=== PATIENT | female | born 1990 | race Caucasian/White ===

== ENCOUNTER → 2024-02-20 07:21 | Outpatient (CLI) | payer OTHER, SELFPAY ==
--- NOTE | 2024-02-20 07:22 | DI.US.S_ITS ---
PROCEDURE: US OB >= 14 WEEKS FETUS INDICATIONS: anatomy, earlier concern for non-fusion of membranes OUTSIDE/PRIOR DATING DATA: Last menstrual period (LMP): 09/28/2023. LMP-based estimated date of delivery (EL): 07/04/2024. First dating scan (date and location): 02/20/2024. Estimated date of delivery (EL) from first dating scan: 07/01/2024. The calculations are made using the clinical EL of 07/04/2024. TECHNIQUE: Real-time scanning was performed of the fetus, with image documentation and biometric measurements. Endovaginal scanning: Not performed. COMPARISON: None. FINDINGS: General: A single living intrauterine gestation is present. Presentation: Vertex. Placenta: Placental position is posterior, without previa. Amniotic fluid index: 15.8 cm, normal range is 5-24 cm. Single deepest vertical pocket is 4.3 cm. heart rate: 149 beats per minute. Maternal cervical canal: 4.6 cm long. Normal lower limit is 2.5 cm. biometrics: Biparietal diameter: 5.1 cm, 21 weeks 4 days Head circumference: 19.1 cm, 21 weeks 2 days Abdominal circumference: 16.7 cm, 21 weeks 5 days Femur length: 3.3 cm, 20 weeks 1 day Clinically estimated gestational age: 20 weeks 5 days Composite gestational age from present scan: 21 weeks 1 day Estimated weight and percentile: 397 g, 65th percentile. Anatomic survey: Neuro: Ventricles are non-dilated at less than 10 mm. Cisterna magna is normal at 3-11 mm. Cerebellum is normal in size and morphology. Nuchal skin fold: Normal at less than 6 mm between 14-21 weeks gestational age. Face: Nose and lips, facial profile are normal. Spine: No evidence for spina bifida. Heart: 4-chambered heart is present, with normal ventricular outflow tracts. Diaphragm: Diaphragm is intact. Stomach: Left-sided stomach is present. Kidneys: No hydronephrosis. Normal is less than 5 mm in 2nd trimester, less than 7 mm in 3rd trimester. Cord: 3-vessel cord has orthotopic insertion. Bladder: Normal in size. Extremities: All 4 extremities identified. IMPRESSION: 1. Merchant living intrauterine at 21 weeks 1 day based on today's ultrasound. Fetus is in the 65th percentile for weight. 2. Normal placenta and amniotic fluid. 3. Normal and complete anatomic survey. We strive to produce accurate, complete, and clear reports of imaging services. To assist us in improving patient care, this report was composed using standard report templates and voice recognition software. Therefore, it may contain abnormal punctuation, insertions and/or omissions. Occasional wrong-word or sound-alike substitutions may occur. Though we review the report and make efforts to correct it, we do recommend that the report be read carefully in proper context to recognize any text inaccuracies. Dictated by: Wesley Meeks M.D. on 02/20/2024 at 10:46 Approved by: Wesley Meeks M.D. on 02/20/2024 at 10:51
== END ==
PROVIDERS: Referring Provider Student in an Organized Health Care Education/Training Program; Visit Provider Student in an Organized Health Care Education/Training Program
DX: Z34.80 Encounter for supervision of other normal pregnancy, unspecified trimester (principal); Z3A.21 21 weeks gestation of pregnancy
CPT/HCPCS: 76811

== ENCOUNTER → 2024-03-14 12:12 | Outpatient (CLI) | payer OTHER, SELFPAY ==
[2024-03-14 12:46] LABS: Appearance Urine UA CLEAR; Bilirubin Urine UA NEGATIVE (NEGATIVE); Color Urine UA YELLOW; Glucose Urine UA NEGATIVE (Negative); Ketones Urine UA NEGATIVE (NEGATIVE); Leukocyte Esterase Urine UA TRACE (NEGATIVE); Nitrite Urine UA NEGATIVE (Negative); Occult Blood Urine UA NEGATIVE (Negative); Protein Urine UA NEGATIVE (Negative); Specific Gravity Urine UA <=1.005 (1.000-1.035); Urobilinogen Urine UA 0.2 E.U./dL (0.2)
[2024-03-14 12:48] LABS: pH Urine UA 6.5 (4.5-8.0)
[2024-03-14 12:54] LABS: Bacteria Urine Moderate (10-30); Culture Indicated Urine Cult Not Indicated; RBC Urine None Seen (0-5/HPF); Squamous Epithelial Cell Urine 5-10 /HPF (0-5/HPF); Urine Volume 10mL (spun); WBC Urine 1-5/HPF (0-5/HPF)
== END ==
LOC: LAB 12:13
PROVIDERS: Referring Provider Student in an Organized Health Care Education/Training Program; Visit Provider Student in an Organized Health Care Education/Training Program
DX: R30.0 Dysuria (principal)
CPT/HCPCS: 81001

== ENCOUNTER 2024-03-14 16:04 | Inpatient (IN) | payer OTHER, SELFPAY ==
--- NOTE | 2024-03-14 16:56 | DI.US.S_ITS ---
PROCEDURE: US OB LIMITED INDICATIONS: cervical length, bloody discharge OUTSIDE/PRIOR DATING DATA: Last menstrual period (LMP): 09/28/2023 LMP-based estimated date of delivery (EL): 07/04/2024 The calculations are made using the working EL of 07/04/2024. TECHNIQUE: Real-time scanning was performed of the fetus, with image documentation and biometric measurements. . Endovaginal scanning: Not performed COMPARISON: [facility], , OB >= 14 WEEKS FETUS, 02/20/2024, 7:45. FINDINGS: General: A single living intrauterine gestation is present. Presentation: Breech Placenta: Placental position is left fundal, without previa. Amniotic fluid index: 9.5 cm, normal range is 5-24 cm. Single deepest vertical pocket is 3.6 cm. heart rate: 157 beats per minute. Maternal cervical canal: Cervix is completely dilated measures up to 10.1 cm in diameter. foot appears extending into cervical canal. biometrics: Biparietal diameter: 6.5 cm, 26 weeks, 2 days. Head circumference: 23.2 cm, 25 weeks, 2 days. Abdominal circumference: 20.0 cm, 24 weeks, 4 days. Femur length: 4.2 C he 3 weeks, 4 days. Clinically estimated gestational age: 24 weeks, 0 day Composite gestational age from present scan: 25 weeks, 0 day Estimated weight and percentile: 693 grams, 61 percent IMPRESSION: 1. Single live intrauterine gestation with fetus in breech presentation. heart rate is 157 beats per minute. Estimated weight is at 61 percent and is consistent with normal growth. 2. Normal JENN at 9.5 cm. 3. Completely dilated cervix measures up to 10.1 cm in diameter. foot appears extending into cervical canal. We strive to produce accurate, complete, and clear reports of imaging services. To assist us in improving patient care, this report was composed using standard report templates and voice recognition software. Therefore, it may contain abnormal punctuation, insertions and/or omissions. Occasional wrong-word or sound-alike substitutions may occur. Though we review the report and make efforts to correct it, we do recommend that the report be read carefully in proper context to recognize any text inaccuracies. Dictated by: Yash Glass M.D. on 03/14/2024 at 17:54 Approved by: Yash Glass M.D. on 03/14/2024 at 18:01
[2024-03-14] MEDS: BETAMETHASONE 30 MG/5 ML MDV 12 MG IM (17:35)
[2024-03-14 17:50] LABS: Fetal Fibronectin Positive
[2024-03-14 17:57] LABS: Add Manual Diff / Slide Review NO; Basophils Absolute Auto 100 /uL (0-100); Basophils Percent Auto 0.9 % (0-2); Eosinophils Absolute Auto 0 /uL (0-450); Eosinophils Percent Auto 0.4 % (2-4); Hematocrit 38.8 % (36-46); Hemoglobin 13.3 g/dL (12.0-16.0); Lymphocytes Absolute Auto 2000 /uL (1100-4500); Lymphocytes Percent Auto 22.5 % (25-40); Mean Corpuscular HGB Conc 34.2 % (30-36); Mean Corpuscular Hemoglobin 33.5 PG (26-34); Mean Corpuscular Volume 98.2 fL (80-100); Monocytes Absolute Auto 700 /uL (0-900); Monocytes Percent Auto 7.7 % (3-14); Neutrophils Absolute Auto 6200 /uL (1500-7000); Neutrophils Percent Auto 68.5 % (50-75); Platelet Count 225 X10^3/uL (150-400); Red Blood Cell Count 3.95 X10^6/uL (4.0-5.2); Red Cell Distribution Width 13.4 % (11.6-14.8)
[2024-03-14] MEDS: CEFAZOLIN 2 GM/100 ML PREMIX 100 ML IV (18:05)
--- NOTE | 2024-03-14 18:13 | PM.OBHP.IH.1 ---
OB HPI Date/Time Date of admission: 03/14/24 Date Patient Seen: 03/14/24 Time Patient Seen: 18:13 History of Present Condition Chief complaint: OBSERVATION EL Calculator Estimated Delivery Date Method Current WG Current Estimate 07/04/24 Manual 24w 0d Other Estimates 07/09/24 LMP (Certain) 23w 2d Estimated Gestational Age (weeks): 24 : 2 Para: 1 care: good care, initiated at week # (8), number of visits (4) and pounds weight gain (13) Dating criteria OB: LMP confirmed by 1st trimester US Ultrasounds: normal 1st trimester US and normal mid trimester US Obstetrical complications: none Medical complications OB: none Indications Operative indications ( section): breech presentation (double footling) Preadmission Labs Last OB Lab Results: Blood Type Pending 03/14/24 17:43 Antibody Screen Pending 03/14/24 17:43 Hct 38.8 % (36-46) 03/14/24 17:43 Hgb 13.3 g/dL (12.0-16.0) 03/14/24 17:43 -: Chlamydia screen: negative and Gonorrhea screen: negative Genetic Screens: Cell-free DNA: Normal (low risk male) Prior (ies) Past Pregnancies Del. Date GA/Weeks Labor Lgth Wt Sex Route Outcome Anesthesia Place Delv Breastfeed Preg Comp Name 01/22/15 40 12 8 lb 11 oz Male vaginal live - full term epidural [facility] Attempted other Lv Delivery Date: 01/22/15 Last Updated by: Magalie Castrejon RN shortened cervix (incidental finding) Hx # Term Pregnancies: 1 Hx # Pregnancies: 0 Number of Living Children: 1 Multiple births: 0 Spontaneous abortions: 0 Ectopic pregnancies: 0 Elective abortions: 0 Evaluation Evaluation Baseline heart rate: 148 Variability: Moderate (11-25) monitor accelerations: Present Monitor Decelerations: Absent Contraction Frequency (minutes): 3 Uterine Contraction Intensity: Moderate Status: Category l Dilation (cm): 5 Effacement (%): 80 station: +1 (bulging bag of membranes with both feet inside) Position of cervix: anterior Consistency: soft PFSH Medical History (Updated 01/31/24 @ 16:38 by Magalie Castrejon RN) Short cervical length during Abnormal Pap smear of cervix Surgical History (Updated 01/31/24 @ 11:47 by Magalie Castrejon RN) [place] teeth removed (02/06/12) Family History (Updated 02/08/24 @ 11:11 by Magalie Castrejon RN) Mother Heart disease Hyperlipidemia Hypertension Factor V Leiden Grandmother Heart disease Hypertension Sister Hyperlipidemia Hypertension Father Family estrangement Social History marital status: number of children: 1 household members: spouse and children lives independently: Yes caregiver/support person: Yes housing: house pets and animals: Yes (dog) education level: college (bachelor's degree) occupational status: unemployed current occupational exposures/hazards: No special kwabena needs: No travel history: recent (domestic only) seatbelt use: always water heater temp set < 120 deg: Yes working smoke detector in home: Yes fire extinguisher in home: Yes carbon monox detector in home: Yes firearms in home: No do you feel safe at home: Yes Smoking Status: Never smoker second hand exposure: No (~1-2 glasses wine/week when not ) substance use type: does not use well-balanced diet: rarely or never daily servings fruits/ve-1 caffeine: Yes Type(s) of exercise: walking and bicycling (stationary bike) Meds Home Medications and Allergies Home Medications Medication Instructions Recorded Confirmed Type No Known Home Medications 02/19/24 02/19/24 History Allergies Allergy/AdvReac Type Severity Reaction Status Date / Time No Known Drug Allergies Allergy Unverified 02/19/24 14:58 OB Exam Narrative Exam Narrative: Generally: Moderate distress secondary to contraction Fundal height: 25 cm Ultrasound: Estimated weight 693 g. Double footling breech Objective Labs 03/14/24 17:43 Labs: Laboratory Results - last 24 hr 03/14/24 03/14/24 17:15 17:43 WBC 9.0 RBC 3.95 L Hgb 13.3 Hct 38.8 MCV 98.2 MCH 33.5 MCHC 34.2 RDW 13.4 Plt Count 225 Neut % (Auto) 68.5 Lymph % (Auto) 22.5 L Fannin % (Auto) 7.7 Eos % (Auto) 0.4 L Baso % (Auto) 0.9 Neut # (Auto) 6200 Lymph # (Auto) 2000 Fannin # (Auto) 700 Eos # (Auto) 0 Baso # (Auto) 100 Fibronectin Positive H Assessment and Plan Assessment and Plan Assessment and Plan narrative: Assessment: 33-year-old 2 para 1 at 24 weeks gestation by last menstrual period confirmed by first-trimester ultrasound labor with advanced cervical dilation Double footling breech Plan: under regional anesthesia if possible Betamethasone 12.5 mg subQ x1 Peds notified Transport team called The risks, benefits, explained to the patient verbally. Due to emergency situation she was not able to sign consent form but verbally agreed to the . Time-Based Coding :: [TOTAL MINUTES] spent with patient and on the chart (including review of chart, obtaining history, exam, reviewing outside data, placing orders, documenting exam and treatment plan, and counseling patient) on [DATE].
--- NOTE | 2024-03-14 18:25 | PM.PREOP ---
Pre-operative Note Interval Note History & Physical reviewed/Exam performed by Physician: Yes Changes to H&P: No H&P completed within 30 days and has changed as indicated here:: 03/14/24
[2024-03-14] MEDS: ACETAMINOPHEN IV 1,000 MG/100 ML VIAL 400 MG IV (19:08)
--- NOTE | 2024-03-14 19:37 | SUR.OPER ---
Supine on padded OR bed, head on pillow, arms secured on padded arm boards at <90 degrees abduction, legs uncrossed, safety belt at thigh, tape over blanket over lower legs.
--- NOTE | 2024-03-14 20:03 | P.OP_ITS ---
Operative Date/Time/Diagnoses Date of procedure: 03/14/24 Time of procedure: 20:03 Pre-op diagnosis: Twenty-four weeks' gestation Incompetent cervix Double footling breech presentation Post-op diagnosis: same Procedure & Clinicians Procedure: Emergent primary low transverse section Same procedure as scheduled: Yes Indications: 24 weeks' gestation labor Double footling breech presentation Surgeon: Georgina Urbano Yes if Unassisted: No Underwater Hunter: Sunny Ding Reason for Underwater Hunter: The certified physical therapist assistant was necessary to retract upon entry into the abdomen and uterus. He assisted with closure with retraction, clipping of suture, and closure of the contralateral fascia. Anesthesia Type: Spinal and Epidural Operative Notes Findings: Live male infant in the double footling breech presentation Normal uterus, tubes, and ovaries Closure Type: primary Specimen(s): cord pH Intraoperative meds administered: Acetaminophen, Duramorph, Ketorolac and Pitocin Applied: Catheter (To continuous drainage) Estimated Blood Loss (mL): 350 Blood products transfused: none Procedure in detail: The patient was taken to the operating room and placed initially in Trendelenburg. While we waited for the pediatric transport team, a spinal/epidural was placed with the patient lying on her side. Initially the plan was to wait until the pediatric team was on the ground, but the baby began having variable decelerations down to the 90s. A decision was made to proceed. A time-out was performed. The Pearce catheter had already been placed. The patient was prepped and draped in the usual sterile fashion. A Pfannenstiel skin incision was made 2 fingerbreadths above the pubic symphysis and carried through to the underlying layer of fascia. The fascia was nicked in the midline and the incision extended bilaterally with the Gray scissors. The superior aspect of the fascial incision was grasped with the Adelaide clamps, elevated, and the underlying rectus muscles dissected off sharply and bluntly. Attention was then turned to the inferior aspect of this incision which in a similar fashion was grasped with a Adelaide, elevated, and the underlying rectus muscles dissected off sharply and bluntly. The rectus muscles were in the midline. The peritoneum was identified, grasped between 2 hemostats, and entered sharply with the Metzenbaum scissors. A bladder blade was placed. The vesicouterine peritoneum was grasped with a pickup, and entered sharply with the Metzenbaum scissors. This incision was extended bilaterally and the bladder flap created digitally. The bladder blade was reinserted. The lower uterine segment was well-developed. A transverse incision was made and carried through to the am niotic sac. There was clear amniotic fluid. This incision had to be extended vertically to the fundus of the uterus due to head entrapment. The body up to the nipple line was down in the vagina. The was delivered. Milking of the cord was performed. The cord was double clamped and cut. The infant was handed off to waiting resuscitation team. The piece of cord for cord pH was obtained. An attempt to obtain cord bloods was unsuccessful due to the length of the cord at that time. The placenta was delivered by expression. The uterus was cleared of all clots and debris. The vertical incision was closed with 1. Chromic in a running interlocking fashion in 2 layers. The transverse layer was closed with 1. Chromic in a running interlocking fashion and then a second layer of imbricating for hemostasis. A baseball stitch was done with 2-0 Vicryl on the serosa. The bladder flap was reapproximated using 2-0 Vicryl. The gutters were cleared of all clots and debris after the tubes and ovaries were examined. The peritoneum was closed using 2-0 Vicryl in a running fashion. The fascia was reapproximated using 0 Vicryl in a running fashion. The subcutaneous layer was copiously irrigated with warm normal saline. Five simple interrupted sutures of 3-0 Vicryl were placed to reapproximate. The skin was closed with 4-0 Monocryl in a subcuticular fashion. Steri-Strips, ABD, and Medipore tape were placed. The uterus was expressed of a small amount of old blood. Sponge, lap, and instrument counts were correct x2. The patient tolerated the procedure well, and was taken to PACU in stable condition. Complications: none Baby 1: Delivery Date: 03/14/24 Delivery Time: 19:03 Infant Gender: Male Presentation: breech Details: footling (double) Placental Delivery Description: Expressed Cord Vessel Description: 3 Vessels score (1 min): 1 score (5 min): 2 score (10 min): 4 weight: 1 lb 7 oz Post-operative Condition: stable Disposition: PACU Aftercare: routine postop
[2024-03-14 20:19] VITALS: BP 95/61; PULSE 82; RESP 21; TEMP 36.7; O2SAT 100
[2024-03-14 20:22] VITALS: BP 101/57; PULSE 93; RESP 16; O2SAT 100
[2024-03-14 20:30] VITALS: BP 94/55; PULSE 72; RESP 22; O2SAT 100
[2024-03-14 20:36] VITALS: BP 102/61; PULSE 70; RESP 16; O2SAT 100
[2024-03-14] MEDS: LACTATED RINGERS 1,000 ML 999 ML IV (20:40)
[2024-03-14 20:45] VITALS: BP 98/58; PULSE 79; RESP 16; O2SAT 100
[2024-03-14 20:55] VITALS: BP 98/53; PULSE 73; RESP 16; O2SAT 100
--- NOTE | 2024-03-14 21:03 | SUR.PHASEI ---
2015: late entry:Patient directly to center s/p in stable condition; awake and alert; vss; recovered patient in birthing center due to baby being flown out to a higher level of care.
[2024-03-15] MEDS: KETOROLAC 30 MG/ML VIAL IV ×3 (02:32→15:26)
[2024-03-15 05:44] LABS: Add Manual Diff / Slide Review NO; Basophils Absolute Auto 100 /uL (0-100); Basophils Percent Auto 0.5 % (0-2); Eosinophils Absolute Auto 0 /uL (0-450); Hematocrit 34.3 % (36-46); Hemoglobin 11.9 g/dL (12.0-16.0); Lymphocytes Absolute Auto 600 /uL (1100-4500); Mean Corpuscular HGB Conc 34.7 % (30-36); Mean Corpuscular Hemoglobin 33.8 PG (26-34); Mean Corpuscular Volume 97.4 fL (80-100); Monocytes Absolute Auto 500 /uL (0-900); Monocytes Percent Auto 3.7 % (3-14); Neutrophils Absolute Auto 11100 /uL (1500-7000); Neutrophils Percent Auto 90.8 % (50-75); Platelet Count 214 X10^3/uL (150-400); Red Blood Cell Count 3.52 X10^6/uL (4.0-5.2); Red Cell Distribution Width 13.5 % (11.6-14.8); White Blood Cell Count 12.2 X10^3/uL (4.5-11.0)
[2024-03-15] MEDS: ACETAMINOPHEN 325 MG TABLET 650 MG PO ×3 (06:05→16:38)
[2024-03-15] MEDS: DOCUSATE 100 MG CAPSULE PO (09:16)
[2024-03-15] MEDS: PRENATAL VIT,CALC/IRON/FOLIC 1 TABLET 1 TAB PO (09:16)
== END 2024-03-15 16:45 | disposition home or self-care (01) | DRG 788 ==
PROVIDERS: Obstetrics & Gynecology; Admitting Provider Student in an Organized Health Care Education/Training Program; Referring Provider Student in an Organized Health Care Education/Training Program; Visit Provider Student in an Organized Health Care Education/Training Program
PROC: 10D00Z1 Extraction of Products of Conception, Low, Open Approach (ICD-10-PCS; CPT 59514; principal; 2024-03-14 19:00)
DX: O60.12X0 Preterm labor second trimester with preterm delivery second trimester, not applicable or unspecified (principal); O32.8XX0 Maternal care for other malpresentation of fetus, not applicable or unspecified; Z37.0 Single live birth; Z67.40 Type O blood, Rh positive; Z3A.24 24 weeks gestation of pregnancy
CPT/HCPCS: 36415; 59050; 59514; 76815; 81001; 82731; 85025; 86850; 86900; 86901; 87070; 87075; 87205; G0379; J0134; J0330; J0690; J0702; J1100; J1885; J2274; J2405; J2704

== ENCOUNTER 2024-05-13 16:36 | Emergency (ER) | payer OTHER, SELFPAY ==
[2024-05-13] VITALS (9 sets, daily range): BP systolic 112–128; BP diastolic 58–75; PULSE 57–73; RESP 16–18; TEMP 36.3; O2SAT 98–100; BMI 25.1
--- NOTE | 2024-05-13 16:52 | DI.US.S_ITS ---
PROCEDURE: US PELVIC COMPLETE INDICATIONS: 8 weeks post , passing large clots/cramping TECHNIQUE: Real-time scanning was performed of the pelvic organs, with image documentation. Additional endovaginal scanning was necessary due to incomplete visualization of the adnexal and endometrial structures by transabdominal scanning. COMPARISON: None. FINDINGS: Uterus: Uterus is anteverted and normal in size at 9.1 x 5.8 x 5.4 cm. The myometrium is heterogeneous and show increased vascularity within the myometrium. The endometrium measures 10.9 mm combined thickness. Heterogeneous echotexture throughout endometrium with [id number] increased vascularity and microcystic changes. No definite solid appearing endometrial mass or significant fluid. Thickened cervical canal with hyperechoic echotexture. Complex fluid is noted adjacent to left side of vaginal cuff region with internal calcifications and measures up to 5 x 4.4 x 2.9 cm in size with mildly increased peripheral vascularity. Ovaries: The right ovary measures 2.9 x 2.2 x 1.5 cm, with a calculated ovarian volume of 5.1 cc. The left ovary measures 2.8 x 1.7 x 1.8 cm, with a calculated ovarian volume of 4.4 cc. The ovaries have a normal sonographic appearance. Less than 12 follicles can be seen in each ovary. No adnexal masses are seen. Other: No pathologic free abdominal or pelvic fluid. IMPRESSION: 1. Enlarged uterus with heterogeneous myometrial echotexture and mild hyperemia. Thickened endometrium with heterogeneous echotexture and [id number] hyperemia and microcystic changes . No definite endometrial mass or fluid is seen. 2. Mildly thickened endocervical canal with increased echotexture. Complex fluid is seen adjacent to left side of vaginal region as described above which may represent hematoma or seroma related to recent childbirth versus early abscess collection. Clinical correlation is recommended. CT of pelvis with contrast can also be done for further evaluation if indicated. 3. Normal appearing bilateral ovaries. We strive to produce accurate, complete, and clear reports of imaging services. To assist us in improving patient care, this report was composed using standard report templates and voice recognition software. Therefore, it may contain abnormal punctuation, insertions and/or omissions. Occasional wrong-word or sound-alike substitutions may occur. Though we review the report and make efforts to correct it, we do recommend that the report be read carefully in proper context to recognize any text inaccuracies. Dictated by: Yash Glass M.D. on 05/13/2024 at 18:06 Approved by: Yash Glass M.D. on 05/13/2024 at 18:11
[2024-05-13 17:16] LABS: Add Manual Diff / Slide Review NO; Basophils Absolute Auto 100 /uL (0-100); Basophils Percent Auto 1.1 % (0-2); Eosinophils Absolute Auto 100 /uL (0-450); Eosinophils Percent Auto 1.2 % (2-4); Hematocrit 42.3 % (36-46); Hemoglobin 14.5 g/dL (12.0-16.0); Lymphocytes Absolute Auto 1900 /uL (1100-4500); Lymphocytes Percent Auto 31.9 % (25-40); Mean Corpuscular HGB Conc 34.3 % (30-36); Mean Corpuscular Volume 96.2 fL (80-100); Monocytes Absolute Auto 300 /uL (0-900); Monocytes Percent Auto 5.3 % (3-14); Neutrophils Absolute Auto 3600 /uL (1500-7000); Neutrophils Percent Auto 60.5 % (50-75); Platelet Count 250 X10^3/uL (150-400); Red Blood Cell Count 4.39 X10^6/uL (4.0-5.2); Red Cell Distribution Width 12.1 % (11.6-14.8)
[2024-05-13 17:25] LABS: Blood Urea Nitrogen 15 mg/dL (7-17); Calcium 9.4 mg/dL (8.4-10.2); Carbon Dioxide 24 mmol/L (22-32); Chloride 104 mmol/L (98-107); Estimated Glomerular Filt Rate > 60 mL/min (>60); Glucose 111 mg/dL (70-100); HEMOLYSIS < 15 (0-50); Potassium 3.7 mmol/L (3.4-5.1); Sodium 140 mmol/L (137-145)
--- NOTE | 2024-05-13 19:19 | PC.NURSE ---
patient changed diaper depend and reports that it was soiled with blood in toilet and with a huge clot. provider aware.
--- NOTE | 2024-05-13 20:22 | ED_ITS ---
HPI - Female Genitourinary General Chief complaint: Vaginal Bleeding Stated complaint: bleeding since emergency c section 8 weeks ago Time Seen by Provider: 05/13/24 20:22 History of Present Illness HPI Narrative: 33-year-old female without any significant past medical history comes into the ED from home for evaluation of vaginal bleeding. She states that she had a emergency approximately [address] Batista here at [facility]. States that since then she has had some minor bleeding. She states that she was 24 weeks at that time. She states unfortunately the was lost. She states that she has been having cramping and had a larger clot earlier today at 3:30 p.m. which is what brought her into the ED for further evaluation treatment. At time of evaluation patient no longer having any cramping or any other symptoms at this time. Not on any blood thinners, she denies any other symptoms at this time. Related Data Home Medications Medication Instructions Recorded Confirmed No Known Home Medications 02/19/24 04/25/24 Allergies Allergy/AdvReac Type Severity Reaction Status Date / Time No Known Drug Allergies Allergy Unverified 04/25/24 10:00 Review of Systems Review of Systems Narrative: General: Denies fever, chills, weight loss HEENT: Denies headache, eye drainage, eye irritation, head trauma, sore throat, voice change Cardiovascular: Denies any chest pain, palpitations, tachycardia Respiratory: Denies any shortness of breath, cough, wheeze, stridor GI/: Positive vaginal bleeding, Denies any abdominal pain, nausea, vomiting, diarrhea, bright red blood per rectum, melanotic stools, urinary frequency, urinary retention, dysuria, hematuria MSK: Denies any joint pain, muscle pains, swelling Skin: Denies any rashes, lesions, discoloration Neuro: Denies any headache, lightheadedness, dizziness, fainting, weakness Psych: Denies SI/HI Patient History Medical History (Updated 05/13/24 @ 21:23 by Dillon Lira DO) Short cervical length during Abnormal Pap smear of cervix Surgical History (Updated 01/31/24 @ 11:47 by Magalie Castrejon RN) [place] teeth removed (02/06/12) Family History (Updated 02/08/24 @ 11:11 by Magalie Castrejon RN) Mother Heart disease Hyperlipidemia Hypertension Factor V Leiden Grandmother Heart disease Hypertension Sister Hyperlipidemia Hypertension Father Family estrangement Exam Initial Vital Signs Initial Vital Signs: Vital Signs Temperature 97.3 F L 05/13/24 16:41 Pulse Rate 63 05/13/24 16:41 Respiratory Rate 18 05/13/24 16:41 Blood Pressure 125/58 L 05/13/24 16:41 Pulse Oximetry 100 05/13/24 16:41 Oxygen Delivery Method Room Air 05/13/24 16:41 Course Orders Ordered: ED Orders 05/13/24 16:52 US pelvic complete Stat 05/13/24 17:03 Basic Metabolic Panel Stat Complete Blood Count AUTO DIFF Stat Type and Screen Stat Vital Signs Vital signs: Vital Signs - 8 hr 05/13/24 16:41 05/13/24 17:07 05/13/24 17:08 Temperature 97.3 F L Pulse Rate 63 65 Respiratory Rate 18 Blood Pressure 125/58 L 121/71 Pulse Oximetry 100 98 Oxygen Delivery Method Room Air 05/13/24 17:08 05/13/24 19:17 05/13/24 19:17 Temperature Pulse Rate 64 73 Respiratory Rate Blood Pressure 128/65 Pulse Oximetry 100 98 Oxygen Delivery Method Room Air 05/13/24 19:29 05/13/24 19:30 05/13/24 19:30 Temperature Pulse Rate 67 65 Respiratory Rate 17 Blood Pressure 112/58 L Pulse Oximetry 98 98 Oxygen Delivery Method Room Air 05/13/24 20:00 05/13/24 20:00 Temperature Pulse Rate 57 L Respiratory Rate 16 Blood Pressure 112/74 Pulse Oximetry 99 Oxygen Delivery Method Room Air MDM - Female Genitourinary Lab Data 05/13/24 17:03 05/13/24 17:03 Labs: Lab Results 05/13/24 Range/Units 17:03 WBC 6.0 (4.5-11.0) X10^3/uL RBC 4.39 (4.0-5.2) X10^6/uL Hgb 14.5 (12.0-16.0) g/dL Hct 42.3 (36-46) % MCV 96.2 (80-100) fL MCH 33.0 (26-34) PG MCHC 34.3 (30-36) % RDW 12.1 (11.6-14.8) % Plt Count 250 (150-400) X10^3/uL Neut % (Auto) 60.5 (50-75) % Lymph % (Auto) 31.9 (25-40) % [place]field % (Auto) 5.3 (3-14) % Eos % (Auto) 1.2 L (2-4) % Baso % (Auto) 1.1 (0-2) % Neut # (Auto) 3600 (3627-4515) /uL Lymph # (Auto) 1900 (8891-4351) /uL Whitfield # (Auto) 300 (0-900) /uL Eos # (Auto) 100 (0-450) /uL Baso # (Auto) 100 (0-100) /uL Sodium 140 (137-145) mmol/L Potassium 3.7 (3.4-5.1) mmol/L Chloride 104 (98-107) mmol/L Carbon Dioxide 24 (22-32) mmol/L BUN 15 (7-17) mg/dL Creatinine 0.60 (0.52-1.04) mg/dL Estimated GFR > 60 (>60) mL/min BUN/Creatinine Ratio 25.0 H (6-22) Glucose 111 H (70-100) mg/dL Calcium 9.4 (8.4-10.2) mg/dL Blood Type O Positive Antibody Screen Negative Imaging Data US - LEGAL CASHIER: Radiologist's Impression: [place] [address] Ultrasound Report Signed Patient: Delmy Nathan MR#: [id number] : 1990 Acct:[id number] Age/Sex: 33 / F Date of Service: 05/13/24 Loc: ED Accession Number: [id number] Procedure: US pelvic complete Ordering Provider: Zion Caballero MD PROCEDURE: US PELVIC COMPLETE INDICATIONS: 8 weeks post , passing large clots/cramping TECHNIQUE: Real-time scanning was performed of the pelvic organs, with image documentation. Additional endovaginal scanning was necessary due to incomplete visualization of the adnexal and endometrial structures by transabdominal scanning. COMPARISON: None. FINDINGS: Uterus: Uterus is anteverted and normal in size at 9.1 x 5.8 x 5.4 cm. The myometrium is heterogeneous and show increased vascularity within the myometrium. The endometrium measures 10.9 mm combined thickness. Heterogeneous echotexture throughout endometrium with jjyk-[id number] increased vascularity and microcystic changes. No definite solid appearing endometrial mass or significant fluid. Thickened cervical canal with hyperechoic echotexture. Complex fluid is noted adjacent to left side of vaginal cuff region with internal calcifications and measures up to 5 x 4.4 x 2.9 cm in size with mildly increased peripheral vascularity. Ovaries: The right ovary measures 2.9 x 2.2 x 1.5 cm, with a calculated ovarian volume of 5.1 cc. The left ovary measures 2.8 x 1.7 x 1.8 cm, with a calculated ovarian volume of 4.4 cc. The ovaries have a normal sonographic appearance. Less than 12 follicles can be seen in each ovary. No adnexal masses are seen. Other: No pathologic free abdominal or pelvic fluid. IMPRESSION: 1. Enlarged uterus with heterogeneous myometrial echotexture and mild hyperemia. Thickened endometrium with heterogeneous echotexture and oyqs-je-hhevhuhx hyperemia and microcystic changes . No definite endometrial mass or fluid is seen. 2. Mildly thickened endocervical canal with increased echotexture. Complex fluid is seen adjacent to left side of vaginal region as described above which may represent hematoma or seroma related to recent childbirth versus early abscess collection. Clinical correlation is recommended. CT of pelvis with contrast can also be done for further evaluation if indicated. 3. Normal appearing bilateral ovaries. [facility] Narrative Medical decision making narrative: 31-year-old female coming in for vaginal bleeding since [address] Batista, patient was 24 weeks at that time did not survive unfortunately. Patient states that she has been having intermittent bleeding since then however today had a larger amount of cramping and large clot passage therefore decided come into the ED for further evaluation treatment. Urinalysis not consistent acute urinary tract infection, patient's hemoglobin 14.5, remaining of lab work unremarkable. Ultrasound was obtained did show normal endometrial changes as well as fluid noted to the left side of the vaginal region, hematoma versus seroma, less likely abscess given patient afebrile, no leukocytosis and non peritoneal abdomen. Patient deferred pelvic exam here in the emergency department. Patient states she does have an appointment with Dr. Batista tomorrow for her bleeding. She will be sent home with strict return precautions she verbalized understanding of this and agrees to being discharged home with outpatient follow up 2040: Did discuss with OBGYN doctor Zaki, agrees no additional intervention needed at this time, agrees with dose of Toradol for symptom treatment and to follow up with Dr. Batista for their scheduled appointment Discharge Plan Departure Patient Disposition: Home Clinical Impression: Abnormal vaginal bleeding Activity Restrictions/Additional Instructions: Please follow up with Dr. Batista for your scheduled appointment Please read the discharge instructions sheet carefully and bring all papers to all doctor follow-up visits, as it may contain information that your doctor may want to see. Disease processes change and evolve, if your symptoms worsen or if you develop any new symptoms that are concerning to you please return for evaluation. Your evaluation today does not show any evidence of any life- threatening/serious illnesses requiring admission to the hospital or surgery. Please follow-up with your doctor for re-evaluation in approximately 1 day. Seek immediate medical attention for any worrisome symptoms. *If you do not have a primary care provider please contact the [facility] Resource line at [phone]. They will ask some questions about your medical history and help get you set up with a doctor in the community. Prescriptions: No Action No Known Home Medications Referrals: ProviderNora [Primary Care Provider] - Stand Alone Forms: Patient Portal/API/Survey
[2024-05-13] MEDS: KETOROLAC 30 MG/ML VIAL IV (21:03)
[2024-05-13 21:18] LABS: Appearance Urine UA Turbid; Color Urine UA RED
[2024-05-13 21:19] LABS: Bacteria Urine Occasional (0-1); Culture Indicated Urine Cult Not Indicated; Ictotest Urine Negative (Negative); RBC Urine >100/HPF (0-5/HPF); Squamous Epithelial Cell Urine 0-1 /HPF (0-5/HPF); Urine Volume 10mL (spun); WBC Urine 1-5/HPF (0-5/HPF)
== END 2024-05-13 21:30 | disposition home or self-care (01) ==
PROVIDERS: Emergency Medicine; Emergency Provider Student in an Organized Health Care Education/Training Program; Referring Provider Obstetrics & Gynecology
DX: N93.9 Abnormal uterine and vaginal bleeding, unspecified (principal); Z87.59 Personal history of other complications of pregnancy, childbirth and the puerperium
CPT/HCPCS: 36415; 76830; 76856; 80048; 81001; 85025; 86850; 86900; 86901; 96374; 99284; J1885

== ENCOUNTER 2024-06-09 10:55 | Day surgery (SDC) | payer OTHER, SELFPAY ==
[2024-06-04 09:59] VITALS: BMI 25.1
[2024-06-09] VITALS (7 sets, daily range): BP systolic 92–121; BP diastolic 51–90; PULSE 47–68; RESP 12–16; TEMP 36.2; O2SAT 93–100; BMI 25.1
--- NOTE | 2024-06-09 | PATH_ITS ---
[facility] Accession Number: [id number] No. of containers..01 Tissue . 01 Material submitted: . endometrium - ENDOMETRIAL CURRETTINGS . 01 Diagnosis: ENDOMETRIUM, CURETTINGS: Endometrium with shedding and breakdown changes. Small fragments of benign placental site nodule also present. Negative for atypia or malignancy. MRV 06/16/2024 1618 Local . 01 Comment: As part of ongoing quality assurance specialist, this case is also reviewed by Dr. Nunu Chanel, who agrees with the interpretation. . 01 Electronically signed: . Vazquez Jones MD, Pathologist NPI- [id number] . 01 Gross description: . Received in formalin with two identifiers and endometrial curettings, are multiple anderson to hemorrhagic soft tissue fragmetns aggregating to 3.2 x 2.7 x 0.6 cm. Filtered and submitted in cassette A1. ([id number]) /FLETCHER 06/10/2024 0919 Local . 01 Pathologist provided ICD-10: N93.9 . 01 CPT . 114391 Specimen Comment: A courtesy copy of this report has been sent to [phone] Performed at: [address] [facility], [place], [place] [id number] MD Mannie Flores MD Phone: [phone]
[2024-06-09] MEDS: LACTATED RINGERS 1,000 ML 21 ML IV (11:32)
[2024-06-09] MEDS: SCOPOLAMINE 1 PATCH TOP (11:32)
[2024-06-09] MEDS: ACETAMINOPHEN IV 1,000 MG/100 ML VIAL 400 MG IV (11:32)
--- NOTE | 2024-06-09 11:46 | P.HPOB_ITS ---
History of Present Illness History of Present Illness Reason for admission: vaginal bleeding Narrative: Delmy Nathan is a 33 year old female 2 para 1101 who presents for a D&C hysteroscopy due to persistent bleeding 3 months . Patient had an emergency at 24 weeks gestation for incompetent cervix and breech presentation. She has continued to bleed despite multiple modalities. [facility] Medical History (Updated 05/28/24 @ 00:01 by ) Abnormal Pap smear of cervix Short cervical length during Surgical History (Updated 06/04/24 @ 10:07 by Leyla Ayala RN) Hx of emergency section (03/14/24) [place] teeth removed (02/06/12) Family History (Updated 02/08/24 @ 11:11 by Magalie Castrejon RN) Mother Heart disease Hyperlipidemia Hypertension Factor V Leiden Grandmother Heart disease Hypertension Sister Hyperlipidemia Hypertension Father Family estrangement Social History marital status: number of children: 1 household members: spouse and children lives independently: Yes caregiver/support person: Yes housing: house pets and animals: Yes (dog) education level: college (bachelor's degree) occupational status: unemployed current occupational exposures/hazards: No special kwabena needs: No travel history: recent (domestic only) seatbelt use: always water heater temp set < 120 deg: Yes working smoke detector in home: Yes fire extinguisher in home: Yes carbon monox detector in home: Yes firearms in home: No do you feel safe at home: Yes Smoking Status: Never smoker second hand exposure: No (~1-2 glasses wine/week when not ) substance use type: does not use well-balanced diet: rarely or never daily servings fruits/ve-1 caffeine: Yes Type(s) of exercise: walking and bicycling (stationary bike) Meds Home Medications and Allergies Home Medications Medication Instructions Recorded Confirmed Type norethindrone acetate 1 mg-ethinyl 1 tab PO DAILY Abnormal bleeding 05/14/24 05/14/24 Rx estradiol 20 mcg tablet #21 tabs Allergies Allergy/AdvReac Type Severity Reaction Status Date / Time No Known Drug Allergies Allergy Unverified 05/14/24 15:38 Exam Vital Signs (past 8 hours): - 06/09/24 11:20 Temperature 97.2 F L Pulse Rate 65 Respiratory Rate 16 Blood Pressure 121/90 Pulse Oximetry 98 Oxygen Delivery Method Room Air Oxygen Delivery Method Room Air Narrative Exam Narrative: HEENT: No thyromegaly, no anterior cervical or supraclavicular lymphadenopathy. Lungs:Clear to auscultation bilaterally, no wheezes. Cardiovascular: Regular rate and rhythm, no murmurs, rubs, or gallops. Abdomen: Well-healed Pfannenstiel scars. No hepatosplenomegaly. No masses palpable. External genitalia: Normal Vagina: Normal Cervix: Normal Bimanual exam: 8 Week size anteverted uterus. Mobile. Extremities: No edema Assessment & Plan Assessment & Plan narrative: Assessment: 33-year-old 2 para February 06, 2000 with persistent vaginal bleeding 3 months Plan: D&C hysteroscopy The risks, benefits, and alternatives to the procedure were explained to the patient. The risks including bleeding, infection, and uterine perforation. She understands these risks and agrees to proceed. A full par Q was held and consent form was signed. Time-Based Coding :: [TOTAL MINUTES] spent with patient and on the chart (including review of chart, obtaining history, exam, reviewing outside data, placing orders, documenting exam and treatment plan, and counseling patient) on [DATE].
--- NOTE | 2024-06-09 11:51 | PM.PREOP ---
Pre-operative Note Interval Note History & Physical reviewed/Exam performed by Physician: Yes Changes to H&P: No H&P completed within 30 days and has changed as indicated here:: 06/09/24
--- NOTE | 2024-06-09 12:00 | SUR.OPER ---
Lithotomy on padded OR bed, head on pillow, arms secured on padded arm boards at <90 degrees abduction. Legs secured in padded yellow fins stirrups.
[2024-06-09] MEDS: CEFAZOLIN 2 GM/100 ML PREMIX 100 ML IV (12:08)
--- NOTE | 2024-06-09 12:23 | PM.GYNOP.1 ---
Operative Date/Time/Diagnoses Date of procedure: 06/09/24 Time of procedure: 12:23 Pre-op diagnosis: Persistent vaginal bleeding 3-1/2 months Post-op diagnosis: same Procedure & Clinicians Procedure: Procedures Operation Date: 06/09/24 11:45 Actual Procedure Side Surgeon p Hysteroscopy D&C Georgina Batitsa MD Indications: 33-year-old 2 para 1101 with persistent vaginal bleeding 3-1/2 months after a . Surgeon: Georgina Batista Anesthesia Type: General (LMA) Operative Notes Findings: Thin, bright red blood, with curettage Closure Type: not applicable Specimen(s): endometrial curettings Estimated blood loss (mL): 100 Blood products transfused: none Procedure in detail: After informed consent was obtained, the patient was taken to the where she was placed dorsal supine position. After adequate LMA general anesthesia was achieved, she was placed in the dorsal lithotomy position, and prepped and draped in the usual sterile fashion. A time-out was performed. A bivalve speculum was placed into the vagina and the anterior lip of the cervix was grasped with a single-tooth tenaculum. The cervical os was sequentially dilated until the hysteroscope could pass easily into the endometrial cavity. Initial inspection with the hysteroscope revealed both fallopian tube ostia. There was no evidence of retained fragments of placenta. The hysteroscope was removed. Sharp curettage was performed yielding very thin watery blood. The instruments were removed from the uterus. The single-tooth tenaculum was removed from the anterior lip of the cervix. The bivalve speculum was removed from the vagina. Sponge, lap, and instrument counts were correct x2. The patient tolerated the procedure well, and was taken to PACU in stable condition. Complications: none Post-operative Condition: stable Disposition: PACU Plan for aftercare: Home after recovery
== END 2024-06-09 13:20 | disposition home or self-care (01) ==
PROVIDERS: Referring Provider Obstetrics & Gynecology; Visit Provider Obstetrics & Gynecology
PROC: 0UDB8ZZ Extraction of Endometrium, Via Natural or Artificial Opening Endoscopic (ICD-10-PCS; CPT 58558; principal; 2024-06-09 11:45)
DX: N93.9 Abnormal uterine and vaginal bleeding, unspecified (principal)
CPT/HCPCS: 58558; J0131; J0690; J1100; J1885; J2250; J2405; J2704; J3010